=== PATIENT | female | born 1975 | race Caucasian/White ===

== ENCOUNTER 2022-07-25 06:52 | Day surgery (SDC) | payer OTHER ==
[2022-07-24 15:23] VITALS: BMI 23.6
[2022-07-25 07:24] VITALS: RESP 18
[2022-07-25] MEDS ORDERED: PROPOFOL 60 ML ONE (08:00)
[2022-07-25] MEDS ORDERED: PROPOFOL 80 ML ONE (08:29)
[2022-07-25 09:50] VITALS: BP 101/61; PULSE 62; TEMP 98
== END 2022-07-25 09:45 | disposition home or self-care (01) ==
LOC: FASU-ENDO 06:52
PROVIDERS: ATTEND Student in an Organized Health Care Education/Training Program
PROC: 0DBP8ZX Excision of Rectum, Via Natural or Artificial Opening Endoscopic, Diagnostic (ICD-10-PCS; 2022-07-25)
PROC: 0DBB8ZX Excision of Ileum, Via Natural or Artificial Opening Endoscopic, Diagnostic (ICD-10-PCS; 2022-07-25)
PROC: 0DBK8ZX Excision of Ascending Colon, Via Natural or Artificial Opening Endoscopic, Diagnostic (ICD-10-PCS; principal; 2022-07-25 08:05)
DX: R19.7 Diarrhea, unspecified (principal); K56.2 Volvulus; K64.8 Other hemorrhoids; K63.89 Other specified diseases of intestine
CPT/HCPCS: 81025; 88305-TC